=== PATIENT | male | born 2000 | race African-American/Black ===

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

== ENCOUNTER 2019-06-27 07:12 | Emergency (ER) | payer SELFPAY ==
--- NOTE | 2019-06-27 08:29 | ER Document Report ---
ED Syncope and Near Syncope - General Chief Complaint: Syncope Stated Complaint: SYNCOPE Time Seen by Provider: 06/27/19 08:01 Primary Care Provider: BINTA DELACRUZ MD [ACTIVE STAFF] - Follow up in 3-5 days Notes: Patient is a 18-year-old male who presents the emergency department with a chief complaint of a syncopal/near syncopal episode. He went for a run this morning and ran about a mile because he is training for the [employer]. He is supposed to be joining on August 15. Patient states that when he got home from running he felt dizzy and collapsed at his aunt's house. Patient states that he feels better n ow. Patient states that he is just starting his training and has not been running a lot recently. TRAVEL OUTSIDE OF THE [place] IN LAST 30 DAYS: No - Related Data Allergies/Adverse Reactions: No Known Allergies Allergy (Verified 06/27/19 07:43) Past Medical History - Social History Smoking Status: Never Smoker Chew tobacco use (# tins/day): No Frequency of alcohol use: None Drug Abuse: None Family History: Reviewed & Not Pertinent Patient has suicidal ideation: No Patient has homicidal ideation: No Neurological Medical History: Reports: Hx Migraine Renal/ Medical History: Denies: Hx Peritoneal Dialysis Skin Medical History: Reports Hx Eczema - Immunizations Immunizations up to date: Yes Review of Systems - Review of Systems Notes: REVIEW OF SYSTEMS: CONSTITUTIONAL : Denies recent illness. Denies recent unintentional weight loss. Denies fever, chills, or sweats. EENT: Denies eye, ear, throat, or mouth pain, discharge, or symptoms. Denies nasal or sinus congestion. CARDIOVASCULAR: Denies chest pain. RESPIRATORY: Denies shortness of breath, cough, congestion, difficulty breathing, or wheezing. GASTROINTESTINAL: Denies nausea, vomiting, and diarrhea. Denies abdominal pain. Denies constipation. GENITOURINARY: Denies difficulty urinating, burning, blood in urine, urgency or frequency. MUSCULOSKELETAL: Denies neck and back pain. Denies joint pain or swelling. SKIN: Denies rash, itchiness, or lesions HEMATOLOGIC : Denies easy bruising or bleeding. LYMPHATIC: Denies swollen, painful, enlarged glands. NEUROLOGICAL: Denies no numbness or tingling denies weakness. Denies headache. Denies altered mental status. Denies alteration in speech. See HPI. PSYCHIATRIC: Denies stress, anxiety, alteration in sleep patterns, or depression. All other systems reviewed and negative. Physical Exam - Vital signs Vitals: Temp Pulse Resp BP Pulse Ox 97.8 F 81 16 102/70 100 06/27/19 07:20 06/27/19 07:20 06/27/19 07:20 06/27/19 07:20 06/27/19 07:20 - Notes Notes: PHYSICAL EXAMINATION: GENERAL: Appears well, healthy, well-nourished, no acute distress. HEAD: Normocephalic, atraumatic. EYES: PERRL, conjunctiva normal, all extraocular movements intact, sclera nonicteric ENT: Dry mucous membranes. NECK: Supple, no noticeable swelling, redness, rash. Normal range of motion. LUNGS: Equal breath sounds bilaterally and clear to auscultation. No wheezes ra les or rhonchi. CARDIOVASCULAR: S1-S2, regular rate, regular rhythm. Radial pulses 2+, normal. ABDOMEN: Normoactive bowel sounds. Soft, nontender, no guarding, no rebound tenderness, and no masses palpated. EXTREMITIES: Normal strength and range of motion, no pitting or edema. No cyanosis. NEUROLOGICAL: Moves all extremities upon command. Strength 5/5 in all extremities. PSYCH: Normal mood, normal affect. SKIN: Warm, dry. No rash, lesions, ulcerations noted. Normal skin turgor. Course - Re-evaluation Re-evalutation: 06/27/19 10:22 Hematology is unremarkable. Chemistries are unremarkable, other than calcium wh ich is slightly elevated. CK and troponin are normal. LFTs are normal. Patient has protein in his urine, consistent with dehydration. Influenza tests are negative. I have a very low suspicion for any life-threatening etiology at this time. Patient is dehydrated. EKG is the same as in October 2018. Patient states that he feels better after receiving IV fluids. I suggested he see his supervisor crack off for a Holter monitor. He is in agreement with this plan. Follow- up precautions were given. Verbal discharge instructions were given to the patient. They verbalized understanding. They are stable for discharge. - Vital Signs Vital signs: Temp Pulse Resp BP Pulse Ox 97.8 F 81 19 129/82 H 96 03/16/20 07:20 06/27/19 07:20 06/27/19 09:00 06/27/19 08:18 06/27/19 09:00 - Laboratory Result Diagrams: 06/27/19 08:11 06/27/19 08:11 Laboratory results interpreted by me: 06/27/19 06/27/19 06/27/19 08:11 08:11 08:11 RDW 14.1 H Lymph % (Auto) 9.8 L Seg Neutrophils % 83.2 H Calcium 10.3 H Urine Protein 100 H Urine Urobilinogen 2.0 H - EKG Interpretation by Me Additional EKG results interpreted by me: 06/27/19 10:23 Sinus arrhythmia. Rate 77. [place] 164 QRS 90; QT 344; QTc 390. No change from previous EKG done on October 15, 2018. Discharge - Discharge Clinical Impression: Dehydration Syncope Qualifiers: Syncope type: unspecified Qualified Code(s): R55 - Syncope and collapse Condition: Stable Disposition: HOME, SELF-CARE Additional Instructions: You are seen today in the emergency department for "passing out." You were dehydrated and rehydrated with IV fluids here in the emergency department. Please make sure you drink plenty of water. I highly suggest you follow-up with the supervisor crack off that you saw in regards to your last visit. See if you can be placed on a Holter monitor to monitor your heart. Follow-up with your primary care provider in regards to this visit. Referrals: BINTA DELACRUZ MD [ACTIVE STAFF] - Follow up in 3-5 days
[2019-06-27 08:52] LABS: APPEARANCE,URINE SLIGHTLY-CLOUDY; BILIRUBIN,URINE NEGATIVE (NEGATIVE); COLOR,URINE YELLOW; GLUCOSE, URINE NEGATIVE (NEGATIVE); KETONES,URINE NEGATIVE (NEGATIVE); LEUKOCYTE ESTERASE,URINE NEGATIVE (NEGATIVE); NITRITE,URINE NEGATIVE (NEGATIVE); PROTEIN,URINE 100 mg/dL (NEGATIVE)
[2019-06-27 08:54] LABS: ABSOLUTE EOSINOPHILS # (AUTO) 0.1 10^3/uL (0.0-0.6); ABSOLUTE MONOCYTES (AUTO) 0.6 10^3/uL (0.1-1.4); ABSOLUTE NEUT (AUTO) 8.2 10^3/uL (1.7-8.2); BASOPHILS % (AUTO) 0.3 % (0-2); EOSINOPHILS % (AUTO) 0.8 % (0-6); HEMATOCRIT 44.7 % (37.9-51.0); HEMOGLOBIN 15.6 g/dL (13.5-17.0); LYMPHOCYTES % (AUTO) 9.8 % (13-45); MEAN CORPUSCULAR HEMOGLOBIN 30.9 pg (27.0-33.4); MEAN CORPUSCULAR HGB CONC 34.9 g/dL (32.0-36.0); MEAN CORPUSCULAR VOLUME 88 fl (80-97); MONOCYTES % (AUTO) 5.9 % (3-13); PLATELET COUNT 269 10^3/uL (150-450); RED BLOOD COUNT 5.06 10^6/uL (4.35-5.55); RED CELL DISTRIBUTION WIDTH 14.1 % (11.5-14.0); SEGMENTED NEUTROPHILS % (AUTO) 83.2 % (42-78); TOTAL CELLS COUNTED % (AUTO) 100 %; WHITE BLOOD COUNT 9.8 10^3/uL (4.0-10.5)
[2019-06-27 09:05] LABS: A TYPE INFLUENZA AG NEGATIVE (NEGATIVE); B INFLUENZA AG NEGATIVE (NEGATIVE)
[2019-06-27 09:06] LABS: ALBUMIN 4.9 g/dL (3.7-5.6); ALKALINE PHOSPHATASE 75 U/L (65-260); ANION GAP 9 (5-19); ASPARTATE AMINO TRANSFERASE 21 U/L (10-45); BILIRUBIN,TOTAL 0.5 mg/dL (0.2-1.3); BLOOD UREA NITROGEN 8 mg/dL (7-20); CALCIUM 10.3 mg/dL (8.4-10.2); CARBON DIOXIDE 30 mmol/L (22-30); CHLORIDE 102 mmol/L (98-107); CREATINE KINASE 101 U/L (55-170); GLUCOSE 87 mg/dL (75-110); POTASSIUM 4.6 mmol/L (3.6-5.0); TOTAL PROTEIN 7.9 g/dL (6.3-8.2)
[2019-06-27 09:14] VITALS: BP 129/82
[2019-06-27] MEDS ORDERED: NORMAL SALINE 1000 ML 1,000 ML IV ONE (09:45)
--- NOTE | 2019-06-27 15:38 | EKG REPORT ---
SEVERITY:- ABNORMAL ECG - SINUS ARRHYTHMIA, RATE 58-87 CONSIDER LEFT VENTRICULAR HYPERTROPHY ST ELEV, PROBABLE NORMAL EARLY REPOL PATTERN : Confirmed by: Bebe Watson MD 27-Jun-2019 15:38:13
== END 2019-06-27 11:08 | disposition home or self-care (01) ==
LOC: ER 07:12
DX: E86.0 Dehydration (principal); R55 Syncope and collapse; R42 Dizziness and giddiness
CPT/HCPCS: 93005; 99284; 96360; 36415; 82550; 85025; 80053; 81001; 84484; 87804; 93010; J7030